=== PATIENT | female | born 1980 | race American Indian/Alaskan Native ===

== ENCOUNTER 2019-06-16 07:24 | Outpatient (CLI) | payer OTHER ==
[~2019-06-16 07:24] MED LIST: ALDACTONE50 MG; ALTACE5 MG; LEVOXYL100 MCG; METFORMIN HCL500 MG
== END 2019-06-16 08:49 | disposition home or self-care (01) ==
LOC: NST 07:24
DX: Z34.83 Encounter for supervision of other normal pregnancy, third trimester (principal)

== ENCOUNTER 2019-06-30 09:34 | Outpatient (CLI) | payer OTHER | END 2019-06-30 12:01 | disposition home or self-care (01) | LOC: NST 09:34 | DX: Z34.83 Encounter for supervision of other normal pregnancy, third trimester (principal) ==

== ENCOUNTER 2019-07-07 07:26 | Outpatient (CLI) | payer OTHER | END 2019-07-07 08:22 | disposition home or self-care (01) | LOC: NST 07:26 | DX: Z34.83 Encounter for supervision of other normal pregnancy, third trimester (principal) ==

== ENCOUNTER 2019-07-21 11:20 | Outpatient (CLI) | payer OTHER | END 2019-07-21 12:12 | disposition home or self-care (01) | LOC: NST 11:20 | DX: Z34.83 Encounter for supervision of other normal pregnancy, third trimester (principal) ==

== ENCOUNTER 2019-08-04 08:33 | Outpatient (CLI) | payer OTHER | END 2019-08-04 09:23 | disposition home or self-care (01) | LOC: NST 08:33 | DX: O16.3 Unspecified maternal hypertension, third trimester (principal); O24.410 Gestational diabetes mellitus in pregnancy, diet controlled ==

== ENCOUNTER 2019-08-13 10:50 | Outpatient (CLI) | payer OTHER | END 2019-08-13 13:21 | disposition home or self-care (01) | LOC: NST 10:50 | DX: Z34.83 Encounter for supervision of other normal pregnancy, third trimester (principal) ==

== ENCOUNTER 2019-08-15 15:30 | Inpatient (IN) | payer OTHER ==
[~2019-08-15] VITALS: Ht 165.1 cm; Wt 2.7 kg
[2019-08-16] MEDS ORDERED: SYNTHROID100 MCG PO (08:32)
[2019-08-16] MEDS ORDERED: TRANDATE300 MG PO (08:32)
[2019-08-16] MEDS ORDERED: GLYBURIDE2.5 MG PO (08:34)
[2019-08-16] MEDS ORDERED: GLYBURIDE5 MG (08:35)
[2019-08-16] MEDS ORDERED: ATABEX OB TABL1 EACH PO (08:36)
[2019-08-16] MEDS ORDERED: ATABEX DHA 200200 MG (08:36)
[2019-08-19] MEDS ORDERED: KETO10TA2 PO (09:46)
[2019-08-19] MEDS ORDERED: OXYC1TAB9 PO (09:46)
== END 2019-08-19 11:12 | disposition home or self-care (01) | DRG 788 ==
LOC: LDR 08-16 06:11 → O/R 08-16 15:42 → SURG-SUITE 08-16 16:18 → OB/GYN 09-04 15:30
PROVIDERS: ADMIT Obstetrics & Gynecology
PROC: 4A1HXFZ Monitoring of Products of Conception, Cardiac Rhythm, External Approach (ICD-10-PCS; 2019-08-16)
PROC: 3E033VJ Introduction of Other Hormone into Peripheral Vein, Percutaneous Approach (ICD-10-PCS; 2019-08-16)
PROC: 10D00Z1 Extraction of Products of Conception, Low, Open Approach (ICD-10-PCS; principal; 2019-08-16 14:00)
DX: O61.0 Failed medical induction of labor (principal); O62.1 Secondary uterine inertia; O24.429 Gestational diabetes mellitus in childbirth, unspecified control; O13.4 Gestational [pregnancy-induced] hypertension without significant proteinuria, complicating childbirth; Z3A.37 37 weeks gestation of pregnancy; Z37.0 Single live birth